=== PATIENT | female | born 1935 | race Caucasian/White ===

== ENCOUNTER 2016-11-18 04:18 | Emergency (ER) | payer MEDICARE ==
--- NOTE | 2016-11-18 04:51 | ED.PDOC ---
History of Present Illness - General Chief Complaint: ENT Problem Stated Complaint: earache Time Seen by Provider: 11/18/16 04:18 Source: patient, RN notes reviewed, Vital Signs reviewed Additional Information: Pt reports 2 to 3 days of worsening intermittent sharp/electric shock like pain in her left ear and surrounding region. She tried some Advil at home with no relief. She clark snot go to the doctor regularly. She lives at home with her elderly . She states she has supportive neighbors that live near them. She is not sure what could be causing the pain. - History of Present Illness Timing/Duration: gradual Severity: moderate EENT Location: ear (L) Prearrival Treatment: over the counter meds Improving Factors: nothing Worsening Factors: movement - of the ear Associated Symptoms: denies symptoms Allergies/Adverse Reactions: Allergies NO KNOWN ALLERGY Allergy (Verified 11/18/16 04:26) Home Medications: Ambulatory Orders Valacyclovir HCl [Valtrex] 1 gm PO TID #21 tab 11/18/16 carBAMazepine [TEGretol] 200 mg PO DAILY #30 tab 11/18/16 Review of Systems - Review of Systems Constitutional: States: no symptoms reported EENTM: States: see HPI, ear pain Respiratory: States: no symptoms reported Cardiology: States: no symptoms reported Gastrointestinal/Abdominal: States: no symptoms reported Genitourinary: States: no symptoms reported Musculoskeletal: States: no symptoms reported Skin: States: no symptoms reported Neurological: States: no symptoms reported Endocrine: States: no symptoms reported Hematologic/Lymphatic: States: no symptoms reported Past Medical History (General) - Patient Medical History Hx Hypertension: Yes - not under any treatment at this time. Hx MRSA: No - Vaccination History Hx Tetanus, Diphtheria Vaccination: No Hx Influenza Vaccination: No Hx Pneumococcal Vaccination: No Immunizations Up to Date: Yes - Social History Hx Tobacco Use: No Hx Chewing Tobacco Use: No Hx Alcohol Use: No Hx Substance Use: No Hx Substance Use Treatment: No Hx Depression: No Feels Threatened In Home Enviroment: No Feels Threatened In a Relationship: No Hx Physical Abuse: No Hx Emotional Abuse: No Hx Suspected Abuse: No - Activities of Daily Living Hospice Agency (if applicable):: None Family Medical History - Family History Mother Family History: No Known Physical Exam - Physical Exam General Appearance: Comfortable - as long as she is not having a paroxysm of pain, No apparent distress - in between Eye Exam: bilateral normal Ear Exam: right ear: TM normal - difficult to fully assess left TM due to pain. 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 Treated with Toradol 15 mg IV with some decrease in intensity of pain. - Results/Orders Results/Orders: Laboratory Results - last 24 hr 11/18/16 11/18/16 11/18/16 05:09 05:09 05:10 WBC 5.7 RBC 4.13 L Hgb 12.4 Hct 36.9 MCV 89.4 MCH 30.0 MCHC 33.5 RDW 13.5 Plt Count 182 MPV 9.9 Absolute Neuts (auto) 3.50 Absolute Lymphs (auto) 1.30 Absolute Monos (auto) 0.60 Absolute Eos (auto) 0.20 Absolute Basos (auto) 0.10 Neutrophils % 61.3 Lymphocytes % 22.3 Monocytes % 11.4 H Eosinophils % 4.1 Basophils % 0.9 ESR 4 Sodium 139 Potassium 4.0 Chloride 108 Carbon Dioxide 24 Anion Gap 11.0 L BUN 16 Creatinine 0.61 BUN/Creatinine Ratio 26.2 H Random Glucose 93 Serum Osmolality 278.4 Calcium 9.3 Total Bilirubin 0.6 AST 16 ALT 11 Alkaline Phosphatase 39 L Creatine Kinase 56 CK-MB (CK-2) 1.7 CK-MB (CK-2) % Not Reportable Troponin I 0.02 Serum Total Protein 6.6 Albumin 4.0 Globulin 2.6 Albumin/Globulin Ratio 1.5 11/18/16 11/18/16 11/18/16 04:18 05:05 05:15 Temperature 98.2 F 98.2 F Pulse Rate 76 57 L Pulse Rate [ 76 81 57 L telemetry] Respiratory 16 18 18 Rate Blood Pressure 191/101 186/89 187/86 [left upper arm ] O2 Sat by Pulse 98 97 97 Oximetry 11/18/16 11/18/16 05:57 06:00 Temperature 98 F Pulse Rate 61 Pulse Rate [ 61 60 telemetry] Respiratory 18 20 Rate Blood Pressure 183/78 202/78 [left upper arm ] O2 Sat by Pulse 98 96 Oximetry Departure - Departure Clinical Impression: Ear pain, left, Uncontrolled hypertension Time of Disposition: 06:38 Disposition: Discharge to Home or Self Care Condition: Fair Departure Forms: ED Discharge - Pt. Copy, Patient Portal Self Enrollment Instructions: High Blood Pressure Referrals: NIKOLE ROBERTS MD REF III [Referring] - 1-2 Days Prescriptions: carBAMazepine [TEGretol] 200 mg PO DAILY #30 tab Valacyclovir HCl [Valtrex] 1 gm PO TID #21 tab Home Medications: Ambulatory Orders Valacyclovir HCl [Valtrex] 1 gm PO TID #21 tab 11/18/16 carBAMazepine [TEGretol] 200 mg PO DAILY #30 tab 11/18/16 Additional Instructions: Establishing continuity of care with a Primary Care Provider will likely benefit your condition. 1.) Regarding your inner ear symptoms. 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 It is a rare form of neuropathic pain which usually responds to treatment with the medicine Tegretol. We start the dosing at 200 mg once a day (preferably at night) for four days, and then increase by 200 mg after that every four days - 200 mg am and 200 mg pm, then 4 days after that 200 mg am and 400 mg pm. If your symptoms do not improve over the next few weeks you will likely benefit from an MRI/MRA of the brain specifically looking at the structures and blood vessels around your left ear to see if there are any structural or vascular abnormalities contributing to your symptoms. For pain it is ok to take ibuprofen - 200 mg/Advil 1 to 2 tablets three or four times a day as needed to calm down inflammation. Since this might be early shingles, we will place you on a regimen of medicine for 7 days called Valtrex - 1000 mg three times a day. 2.) Regarding the high blood pressure. You likely need to start daily blood pressure medicine that will be prescribed by your primary care provider. You should continue to check your blood pressure two to four times a month to get a trend of your values and see how you respond to therapy.
[2016-11-18] MEDS ORDERED: KETOROLAC TROMETHAMINE INJ 30 MG/ML VIAL IV ONE (05:14)
[2016-11-18] MEDS ORDERED: KETOROLAC TROMETHAMINE INJ 30 MG/ML VIAL ONE (05:14)
[2016-11-18 06:00] VITALS: TEMP 98
[2016-11-18] MEDS ORDERED: carBAMazepine 200 MG TAB PO ONE (06:22)
[2016-11-18] MEDS ORDERED: carBAMazepine 200 MG TAB ONE (06:23)
[2016-11-18] MEDS ORDERED: valACYclovir 500 MG TAB PO ONE (06:24)
[2016-11-18] MEDS ORDERED: valACYclovir 500 MG TAB ONE (06:24)
[2016-11-18 06:48] VITALS: BP 190/90; O2SAT 98
== END 2016-11-18 06:45 | disposition home or self-care (01) ==
LOC: ER 04:18
DX: H92.02 Otalgia, left ear (principal); I10 Essential (primary) hypertension
CPT/HCPCS: 36415; 80053; 82550; 82553; 84484; 85025; 85651; J1885

== ENCOUNTER 2016-11-20 14:20 | Emergency (ER) | payer MEDICARE ==
--- NOTE | 2016-11-20 14:31 | ED.PDOC ---
History of Present Illness - General Chief Complaint: Trauma Stated Complaint: fall Time Seen by Provider: 11/20/16 14:30 Source: patient Exam Limitations: no limitations - History of Present Illness Initial Comments: Audra Jha 81 y/o female stated that she slipped and fell on a wooden floor at home landed on her bottom.Has dull pain on right hip radiating to her groin after incident and helped by got up. Denies neck /head/chest injuries. Occurred: just prior to arrival Severity: moderate Injuries/Pain Location: pelvis, other - right hip pain Reason for Fall: slipped Loss of Consciousness: no loss of consciousness Improving Factors: rest Worsening Factors: movement Associated Symptoms (Fall): denies symptoms Allergies/Adverse Reactions: Allergies NO KNOWN ALLERGY Allergy (Verified 11/20/16 14:31) Home Medications: Ambulatory Orders Valacyclovir HCl [Valtrex] 1 gm PO TID #21 tab 11/18/16 carBAMazepine [TEGretol] 200 mg PO DAILY #30 tab 11/18/16 Review of Systems - Review of Systems Constitutional: States: no symptoms reported EENTM: States: no symptoms reported Respiratory: States: no symptoms reported Cardiology: States: no symptoms reported Gastrointestinal/Abdominal: States: no symptoms reported Genitourinary: States: no symptoms reported Musculoskeletal: States: see HPI Skin: States: no symptoms reported Neurological: States: no symptoms reported Past Medical History (General) - Patient Medical History Hx Congestive Heart Failure: No Hx Hypertension: Yes - not under any treatment at this time. Hx Diabetes: No Hx MRSA: No Surgical History: other - left oophorectomy - Vaccination History Hx Tetanus, Diphtheria Vaccination: No Hx Influenza Vaccination: No Hx Pneumococcal Vaccination: No - Social History Hx Tobacco Use: No Hx Chewing Tobacco Use: No Hx Alcohol Use: No Hx Substance Use: No Hx Substance Use Treatment: No Hx Depression: No Hx Physical Abuse: No Hx Emotional Abuse: No Hx Suspected Abuse: No - Activities of Daily Living Patient Lives Alone: No - Grooming Ability: Independent Eating (Feeding) Ability: Independent Toileting Ability: Independent - Female History Patient is a Female of Child Bearing Age (10 -59 yrs old): No Physical Exam - Physical Exam General Appearance: Alert, Comfortable, No apparent distress Head Injury: no evidence of injury Eye Exam: bilateral normal ENT Exam: hearing grossly normal, no evidence of ENT injury, no dental injury Peripheral Pulses: radial,right: 1+, radial,left: 1+ Cardiovascular/Respiratory: regular rate, rhythm, no M/R/G, normal peripheral pulses, normal breath sounds Gastrointestinal/Abdominal: normal bowel sounds, non tender, soft Back Exam: normal inspection, no CVA tenderness, no vertebral tenderness Extremity Exam: pelvis stable, bony-point tenderness - right torchanter, pain with movement Neurologic: no motor/sensory deficits, alert, oriented x 3 Skin Exam: normal color, warm/dry - [place] Coma Score Best Eye Response ([place]): (4) open spontaneously Best Verbal Response ([place]): (5) oriented Best Motor Response ([place]): (6) obeys commands [place] Total: 15 Progress - Progress Progress: 11/20/16 15:20 Vital Signs - 8 hr 11/20/16 14:20 Temperature 99.2 F Pulse Rate [ 83 pulse ox] Respiratory 20 Rate Blood Pressure 188/89 [right arm] O2 Sat by Pulse 96 Oximetry Laboratory Tests 11/20/16 11/20/16 14:40 14:40 WBC 9.7 RBC 3.92 L Hgb 11.8 L Hct 35.2 L MCV 89.9 MCH 30.1 MCHC 33.5 RDW 13.5 Plt Count 178 MPV 9.5 Absolute Neuts (auto) 7.70 H Absolute Lymphs (auto) 0.90 L Absolute Monos (auto) 0.90 H Absolute Eos (auto) 0.10 Absolute Basos (auto) 0.00 Neutrophils % 79.4 H Lymphocytes % 9.2 L Monocytes % 9.6 H Eosinophils % 1.4 Basophils % 0.4 Sodium 142 Potassium 3.9 Chloride 109 Carbon Dioxide 24 Anion Gap 12.9 BUN 24 H D Creatinine 0.72 BUN/Creatinine Ratio 33.3 H Random Glucose 126 H D Serum Osmolality 288.7 Calcium 9.4 Departure - Departure Clinical Impression: Fall Qualifiers: Encounter type: initial encounter Qualified Code(s): W19.XXXA - Unspecified fall, initial encounter Contusion of pelvis Qualifiers: Encounter type: initial encounter Qualified Code(s): S30.0XXA - Contusion of lower back and pelvis, initial encounter Contusion of hip, right Qualifiers: Encounter type: initial encounter Qualified Code(s): S70.01XA - Contusion of right hip, initial encounter Time of Disposition: 15:23 Disposition: Discharge to Home or Self Care Departure Forms: ED Discharge - Pt. Copy, Patient Portal Self Enrollment Instructions: DI for Contusion Referrals: Sherif Brito MD [Primary Care Provider] - 1-2 Weeks Home Medications: Ambulatory Orders Valacyclovir HCl [Valtrex] 1 gm PO TID #21 tab 11/18/16 carBAMazepine [TEGretol] 200 mg PO DAILY #30 tab 11/18/16 Additional Instructions: FOLLOW UP WITH PRIMARY MD 11/27/2016 Call for appointment as needed;Ibuprofen ( otc) 3 tabs by mouth 3 x a day for pain
[2016-11-20 14:32] VITALS: BP 188/89; TEMP 99.2; O2SAT 96
--- NOTE | 2016-11-20 15:07 | RAD ---
EXAM DESCRIPTION: Hip Bilateral CLINICAL HISTORY: pain COMPARISON: 3 view lumbar spine dated 12 April 2007 TECHNIQUE: AP and lateral bilateral FINDINGS: Examination of the right hip reveals no bone joint or soft tissue abnormality. No pelvic fracturing is detected. Degenerative changes are observed in the left sacroiliac joint. Examination of the left hip reveals no bone joint or soft tissue abnormality. No fracturing is detected. IMPRESSION: Exam reveals some degenerative changes in the sacroiliac joints. The exam is otherwise unremarkable. Electronically signed by: Scott Gregorio MD 11/20/2016 3:06 PM CDT
--- NOTE | 2016-11-20 15:09 | RAD ---
EXAM DESCRIPTION: Pelvis,2 or More Views CLINICAL HISTORY: pain COMPARISON: None. TECHNIQUE: AP pelvis dated 20 November 2016. FINDINGS: Bilateral sacroiliac joint degenerative changes are observed. Mild degenerative changes are observed in the lower lumbar spine. No pelvic fracturing is seen. The proximal femurs are normal. IMPRESSION: Degenerative changes are observed in the sacroiliac joints. Exam is otherwise unremarkable. Electronically signed by: Scott Gregorio MD 11/20/2016 3:07 PM CDT
== END 2016-11-20 15:40 | disposition home or self-care (01) ==
LOC: ER 14:20
DX: S30.0XXA Contusion of lower back and pelvis, initial encounter (principal); S70.01XA Contusion of right hip, initial encounter; I10 Essential (primary) hypertension; W01.0XXA Fall on same level from slipping, tripping and stumbling without subsequent striking against object, initial encounter; Y92.009 Unspecified place in unspecified non-institutional (private) residence as the place of occurrence of the external cause

== ENCOUNTER 2016-11-23 12:08 | Emergency (ER) | payer MEDICARE ==
[2016-11-23 12:47] VITALS: O2SAT 95
[2016-11-23] MEDS ORDERED: cefTRIAXone SODIUM 1 GM VIAL IM ONE (13:01)
[2016-11-23] MEDS ORDERED: CIPROFLOXACIN 500 MG TAB PO ONE (13:01)
[2016-11-23] MEDS ORDERED: FLUCONAZOLE 100 MG TAB PO ONE (13:03)
--- NOTE | 2016-11-23 13:05 | ED.PDOC ---
History of Present Illness - General Chief Complaint: Problem Stated Complaint: Frequency and urgency of urination Time Seen by Provider: 11/23/16 12:20 Source: patient Exam Limitations: no limitations - History of Present Illness Initial Comments: the patient is an 81-year-old female presenting to the emergency room secondary to urinary frequency for the last 24 hours. She is having a feeling of incomplete voiding. No shortness of breath. No new back pain. She did trip and fall recently and has musculoskeletal aches from that. No fevers. No evidence of sepsis. Timing/Duration: 24 hours Severity: moderate Improving Factors: nothing Worsening Factors: nothing Associated Symptoms: denies symptoms Allergies/Adverse Reactions: Allergies NO KNOWN ALLERGY Allergy (Verified 11/20/16 14:31) Home Medications: Ambulatory Orders Ciprofloxacin [Cipro] 500 mg PO BID #10 tab 11/23/16 Fluconazole 100 mg PO DAILY #2 tab 11/23/16 Review of Systems - Review of Systems Constitutional: States: no symptoms reported EENTM: States: no symptoms reported Respiratory: States: no symptoms reported Cardiology: States: no symptoms reported Gastrointestinal/Abdominal: States: no symptoms reported Genitourinary: States: see HPI Musculoskeletal: States: see HPI Skin: States: see HPI Neurological: States: no symptoms reported Endocrine: States: no symptoms reported All other Systems: No Change from Baseline Past Medical History (General) - Patient Medical History Hx Stroke: No Hx Cardiac Disorders: No Hx Congestive Heart Failure: No Hx Hypertension: No Hx Diabetes: No Hx Cancer: No Hx Hepatitis C: No Hx MRSA: No Surgical History: no surgical history - Vaccination History Hx Tetanus, Diphtheria Vaccination: No Hx Influenza Vaccination: No Hx Pneumococcal Vaccination: No - Social History Hx Tobacco Use: No Hx Chewing Tobacco Use: No Hx Alcohol Use: No Hx Substance Use: No Hx Substance Use Treatment: No Hx Depression: No Feels Threatened In Home Enviroment: No Feels Threatened In a Relationship: No Hx Physical Abuse: No Hx Emotional Abuse: No Hx Suspected Abuse: No - Female History Patient is a Female of Child Bearing Age (10 -59 yrs old): No Patient : No Family Medical History - Family History Mother Family History: No Known Physical Exam - Physical Exam General Appearance: Alert, Comfortable, No apparent distress Eye Exam: bilateral normal Ears, Nose, Throat: hearing grossly normal, normal ENT inspection, normal pharynx Neck: full range of motion Respiratory: lungs clear, normal breath sounds, no respiratory distress, no accessory muscle use Cardiovascular/Chest: normal peripheral pulses, no edema Peripheral Pulses: radial,right: 2+, radial,left: 2+, dorsalis pedis,right: 2+, dorsalis pedis,left: 2+ Gastrointestinal/Abdominal: non tender, soft Back Exam: no CVA tenderness Extremity: normal capillary refill, other - the patient does have trace edema to bilateral lower extremities. She has difficulty with moving the right lower extremity secondary to her fall. 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 The patient has a significant amount of bacteria and budding yeast in her urine. She is given a dose of Rocephin, ciprofloxacin and Diflucan here today. She needs to increase her fluid intake. The patient will be written for ciprofloxacin for 5 days and Diflucan for 2 days. She does need to follow-up with her primary care doctor early next week for a repeat urinalysis. ER warnings were given for any worsening. - Results/Orders Results/Orders: Laboratory Tests 11/23/16 12:47 Urine Color Yellow Urine Appearance Cloudy Urine pH 5.5 Ur Specific [place] >= 1.030 Urine Protein 100 H Urine Glucose (UA) Negative Urine Ketones Negative Urine Blood Large H Urine Nitrite Positive H Urine Bilirubin Negative Urine Urobilinogen 0.2 Ur Leukocyte Esterase Moderate H Urine RBC 10-20 H Urine WBC Tntc H Ur Epithelial Cells 1-3 Urine Bacteria 2+ H Urine Yeast 2+ budding H - EKG/XRAY/CT CT Ordered: No CT Interpretation Call Back: No Departure - Departure Clinical Impression: Cystitis Disposition: Discharge to Home or Self Care Condition: Fair Departure Forms: ED Discharge - Pt. Copy, Patient Portal Self Enrollment Instructions: Urinary Tract Infection Diet: regular diet Activity: increase activity as tolerated Referrals: Sherif Brito MD [Primary Care Provider] - 1-2 Weeks Prescriptions: Ciprofloxacin [Cipro] 500 mg PO BID #10 tab Fluconazole 100 mg PO DAILY #2 tab Home Medications: Ambulatory Orders Ciprofloxacin [Cipro] 500 mg PO BID #10 tab 11/23/16 Fluconazole 100 mg PO DAILY #2 tab 11/23/16 Additional Instructions: the patient is an 81-year-old female presenting to the emergency room secondary to symptoms of cystitis. The patient has a significant amount of bacteria and budding yeast in her urine. She is given a dose of Rocephin, ciprofloxacin and Diflucan here today. She needs to increase her fluid intake. The patient will be written for ciprofloxacin for 5 days and Diflucan for 2 days. She does need to follow-up with her primary care doctor early next week for a repeat urinalysis. ER warnings were given for any worsening.
[2016-11-23] MEDS ORDERED: LIDOCAINE 1% 10 ML VIAL INJ ONE (13:13)
[2016-11-23 13:57] VITALS: BP 180/74; TEMP 98.8
== END 2016-11-23 13:55 | disposition home or self-care (01) ==
LOC: ER 12:08
DX: N30.90 Cystitis, unspecified without hematuria (principal)
CPT/HCPCS: 81001; 87086; 87088; 87186; J0696

== ENCOUNTER 2019-03-25 07:29 | Emergency (ER) | payer MEDICARE ==
[2019-03-25 07:40] VITALS: BP 180/80; TEMP 97.9; O2SAT 99
--- NOTE | 2019-03-25 07:48 | ED.PDOC ---
History of Present Illness - General Chief Complaint: ENT Problem Stated Complaint: left ear pain Time Seen by Provider: 03/25/19 07:45 Source: patient Exam Limitations: no limitations - History of Present Illness Initial Comments: 83 yo F with no sig PMH who presents for intermittent, mild, L ear pain onset yesterday. Denies associated sx. Otherwise in normal state of health. Was concerned for infection and therefore wanted to be evaluated to make sure she did not need antibx. Denies f/c, cough, congestion, ear discharge, vision changes, eye pain, eye discharge, VICENTE, neck pain, weakness, numbness, rash, hearing deficits. Allergies/Adverse Reactions: Allergies NO KNOWN ALLERGY Allergy (Verified 11/20/16 14:31) Home Medications: Ambulatory Orders NK 03/25/19 Review of Systems - Review of Systems Constitutional: Denies: chills, fever EENTM: States: ear pain. Denies: eye pain, blurred vision, tearing, double vision, ear discharge, nose pain, nose congestion, throat pain, throat swelling, mouth pain, mouth swelling Respiratory: Denies: cough, orthopnea, short of breath, stridor, wheezing Cardiology: Denies: chest pain, edema, palpitations, syncope Gastrointestinal/Abdominal: Denies: abdominal pain, nausea, vomiting Musculoskeletal: Denies: back pain, neck pain Neurological: Denies: headache, numbness, weakness Past Medical History (General) - Patient Medical History Hx Stroke: No Hx Cardiac Disorders: No Hx Congestive Heart Failure: No Hx Hypertension: No Hx Diabetes: No Hx Cancer: No Hx Hepatitis C: No Hx MRSA: No - Vaccination History Hx Tetanus, Diphtheria Vaccination: No Hx Influenza Vaccination: No Hx Pneumococcal Vaccination: No - Social History Hx Tobacco Use: No Hx Chewing Tobacco Use: No Hx Alcohol Use: No Hx Substance Use: No Hx Substance Use Treatment: No Hx Depression: No Hx Physical Abuse: No Hx Emotional Abuse: No Hx Suspected Abuse: No - Female History Patient : No Family Medical History - Family History Mother Family History: No Known Physical Exam - Physical Exam General Appearance: Alert, Comfortable, No apparent distress, Well Developed, Well Groomed, Well Nourished Eye Exam: bilateral normal Ear Exam: bilateral ear: auricle normal, canal normal, TM normal Nasal Exam: normal inspection Throat Exam: normal mouth inspection Neck: non-tender, full range of motion, supple Cardiovascular/Respiratory: regular rate, rhythm, no M/R/G, normal peripheral pulses, no JVD, normal breath sounds, no respiratory distress Abdominal Exam: non-tender Neurologic: no motor/sensory deficits, alert, normal mood/affect, oriented x 3 Skin Exam: normal color, warm/dry Progress - Progress Progress: 03/25/19 07:48 I have explained and reviewed all results with the pt. I explained that emergent conditions may arise and to return to the ER for new, worsening, or any persistent conditions. I've explained the importance of f/u for recheck. All questions and concerns addressed at this time. Pt understands and agrees with plan. Pt well appearing, NAD, is stable for discharge. Coco Davis MD Emergency Medicine Physician Billing Number [id number] Departure - Departure Clinical Impression: Left ear pain Time of Disposition: 07:46 Disposition: Discharge to Home or Self Care Health Concerns: Condition: stable Departure Forms: ED Discharge - Pt. Copy, Patient Portal Self Enrollment Home Medications: Ambulatory Orders NK 03/25/19 Additional Instructions: Follow up: [facility] As needed, if symptoms worsen Your Primary Care Physician Make appointment, two days, for follow up
== END 2019-03-25 07:53 | disposition home or self-care (01) ==
LOC: ER 07:29
DX: H92.02 Otalgia, left ear (principal)

== ENCOUNTER 2019-09-27 08:20 | Observation (INO) | payer MEDICARE ==
[2019-09-27] MEDS ORDERED: SODIUM CHLORIDE 0.9% (FLUSH) 10 ML SYG IV PRN ×2 (08:37→11:05)
--- NOTE | 2019-09-27 09:51 | ED.PDOC ---
History of Present Illness - General Chief Complaint: Respiratory Problem Stated Complaint: SOB, non prod cough x 3 days Time Seen by Provider: 09/27/19 08:37 Source: patient, RN notes reviewed, Vital Signs reviewed, family - Daughter Exam Limitations: no limitations - History of Present Illness Initial Comments: Patient is an 83-year-old white female who presents with complaints of palpitations with chest pressure x3 days. The chest pressure is nonradiating. It is not associated with exertion. Patient is short of breath. It is moderate in intensity. Nothing seems to make it better or worsen. This is new to her as she has no medical problems at all and takes no daily both foods. Timing/Duration: constant, getting worse Severity: moderate Improving Factors: nothing Worsening Factors: nothing Associated Symptoms: cough, shortness of breath Allergies/Adverse Reactions: Allergies NO KNOWN ALLERGY Allergy (Verified 09/27/19 08:43) Home Medications: Ambulatory Orders NK 03/25/19 Review of Systems - Review of Systems Constitutional: States: no symptoms reported, see HPI EENTM: States: no symptoms reported. Denies: blurred vision, double vision, throat pain, throat swelling Respiratory: States: see HPI, cough, short of breath. Denies: stridor, wheezing Cardiology: States: see HPI, chest pain, edema - Mild lower extremity edema., palpitations. Denies: syncope Gastrointestinal/Abdominal: States: no symptoms reported. Denies: abdominal pain, diarrhea, nausea, vomiting Genitourinary: States: no symptoms reported Musculoskeletal: States: no symptoms reported. Denies: back pain, joint pain, joint swelling, neck pain Skin: States: no symptoms reported. Denies: change in color, rash Neurological: States: no symptoms reported. Denies: headache, numbness, paresthesia Endocrine: States: no symptoms reported Hematologic/Lymphatic: States: no symptoms reported. Denies: anemia, easy bleeding, easy bruising Past Medical History (General) - Patient Medical History Hx Stroke: No Hx of COPD: No Hx Cardiac Disorders: No Hx Congestive Heart Failure: No Hx Hypertension: No Hx Diabetes: No Hx Cancer: No Hx Hepatitis C: No Hx MRSA: No Surgical History: no surgical history - Vaccination History Hx Tetanus, Diphtheria Vaccination: No Hx Influenza Vaccination: No Hx Pneumococcal Vaccination: No - Social History Hx Tobacco Use: No Hx Chewing Tobacco Use: No Hx Alcohol Use: No Hx Substance Use: No Hx Substance Use Treatment: No Hx Depression: No Hx Physical Abuse: No Hx Emotional Abuse: No Hx Suspected Abuse: No - Female History Patient is a Female of Child Bearing Age (10 -59 yrs old): No Patient : No Family Medical History - Family History Mother Family History: No Known Living Status: Physical Exam - Physical Exam General Appearance: Alert, Comfortable, Well Developed, Well Groomed, Well Hydrated, Well Nourished Eye Exam: bilateral conjunctivae pale Ears, Nose, Throat: hearing grossly normal, normal ENT inspection, normal pharynx Neck: non-tender, full range of motion, supple, normal inspection Respiratory: chest non-tender, lungs clear, normal breath sounds, no respiratory distress, no accessory muscle use Cardiovascular/Chest: normal peripheral pulses, no murmur, tachycardia, irregularly irregular Peripheral Pulses: radial,right: 2+, radial,left: 2+ Gastrointestinal/Abdominal: normal bowel sounds, non tender, soft, no organomegaly, no pulsatile mass Back Exam: normal inspection, no CVA tenderness, no vertebral tenderness Extremity: normal range of motion, non-tender, pedal edema - 1+ pitting edema to the mid shins bilaterally equal. Neurologic: marketing technology coordinator II-XII nml as tested, no motor/sensory deficits, alert, normal mood/affect, oriented x 3 Skin Exam: warm/dry, pallor Lymphatic: no adenopathy Progress - Progress Progress: Differential diagnosis: Acute MT, new onset A. fib, CHF, pneumonia among others. 09/27/19 0939 hrs Discussed with patient the need for admission. She understands that she has new onset atrial fibrillation with rapid ventricular response. I also explained that her hemoglobin was quite low and we will check her stool for blood. Patient states that she has had no bleeding from her stool and her stool is brown. I discussed this patient with Adam Gurrola NP and he is excepted her for admission. Gato Browning M.D. #[id number] - Results/Orders Results/Orders: 09/27/19 08:37 Sodium Chloride 0.9% (Flush) [Saline Flush Syringe] 3 ml IV PRN PRN URINALYSIS Stat 09/27/19 08:38 Chest,1 View [RAD] Stat 09/27/19 08:45 EKG STAT 09/27/19 09:00 Pulse Ox Daily Laboratory Results - last 24 hr 09/27/19 09/27/19 08:55 08:55 WBC 9.8 RBC 3.68 L Hgb 7.2 L* Hct 24.2 L MCV 65.7 L MCH 19.6 L MCHC 29.9 L RDW 19.1 H Plt Count 308 MPV 8.8 Absolute Neuts (auto) 8.10 H Absolute Lymphs (auto) 0.60 L Absolute Monos (auto) 0.90 H Absolute Eos (auto) 0.10 Absolute Basos (auto) 0.10 Neutrophils % 82.7 H Lymphocytes % 6.5 L Monocytes % 9.4 H Eosinophils % 0.7 L Basophils % 0.7 PT 11.2 H INR 1.13 PTT (SP) 23.2 Sodium 143 Potassium 3.5 L Chloride 113 H Carbon Dioxide 21 Anion Gap 12.5 BUN 22 H Creatinine 0.78 BUN/Creatinine Ratio 28.2 H Random Glucose 140 H Serum Osmolality 290.6 Calcium 8.8 Magnesium 1.9 Total Bilirubin 0.8 Direct Bilirubin 0.2 Indirect Bilirubin 0.6 AST 18 ALT 13 Alkaline Phosphatase 38 L Creatine Kinase 100 CK-MB (CK-2) 3.8 CK-MB (CK-2) % Not Reportable Troponin I 0.03 B-Natriuretic Peptide 586.0 H* Serum Total Protein 7.0 Albumin 4.0 Vital Signs 09/27/19 09/27/19 09/27/19 08:20 08:34 08:45 Temperature 98.2 F Pulse Rate [ 111 H 111 H Pulse ox] Respiratory 28 H 28 H Rate Blood Pressure 167/119 [L brachial] O2 Sat by Pulse 91 L 95 Oximetry 09/27/19 09:00 Temperature Pulse Rate [ 92 H Pulse ox] Respiratory 26 H Rate Blood Pressure 139/84 [L brachial] O2 Sat by Pulse 98 Oximetry EKG performed 27 September 2019 at 0827 hrs.: Atrial fibrillation with rapid ventricular response with aberrantly conducted complexes, nonspecific ST and T wave abnormalities, abnormal EKG. No comparison EKG available for review. EXAM DESCRIPTION: XR Chest, one view CLINICAL HISTORY: sob. COMPARISON: None FINDINGS: The heart is normal in size. The pulmonary vascularity is congested and prominence of the right hilum is noted probably from pulmonary vascular congestion.. Mild perihilar interstitial infiltrates are noted. No pneumothorax or pleural effusion is seen. The osseous structures appear unremarkable. IMPRESSION: Perihilar vascular congestion. Right hilar prominence. Two view chest x-ray examination when patient's condition permits is recommended. Electronically signed by: Pinky Abad MD 09/27/2019 10:09 AM CDT Departure - Departure Clinical Impression: Atrial fibrillation with RVR, Symptomatic anemia, New onset a-fib Dyspnea Qualifiers: Dyspnea type: shortness of breath Qualified Code(s): R06.02 - Shortness of breath Time of Disposition: 09:39 Disposition: Admit Patient Condition: Good Departure Forms: ED Discharge - Pt. Copy, Patient Portal Self Enrollment Home Medications: Ambulatory Orders NK 03/25/19 Critical Care Note - Critical Care Note Total Time (mins): 45 Decision To Admit - Decistion To Admit Decision to Admit Date: 09/27/19 Decision to Admit Time: 09:39
--- NOTE | 2019-09-27 10:11 | RAD ---
EXAM DESCRIPTION: XR Chest, one view CLINICAL HISTORY: sob. COMPARISON: None FINDINGS: The heart is normal in size. The pulmonary vascularity is congested and prominence of the right hilum is noted probably from pulmonary vascular congestion.. Mild perihilar interstitial infiltrates are noted. No pneumothorax or pleural effusion is seen. The osseous structures appear unremarkable. IMPRESSION: Perihilar vascular congestion. Right hilar prominence. Two view chest x-ray examination when patient's condition permits is recommended. Electronically signed by: Pinky Abad MD 09/27/2019 10:09 AM CDT
--- NOTE | 2019-09-27 10:25 | HP ---
CHIEF COMPLAINT: Shortness of breath with heart palpitations and chest pain. HISTORY OF PRESENT ILLNESS: Ms. Jha is an 83 year-old female patient who presented to the Emergency Department today complaining of palpitations with some chest pressure that had been going on for a little over 3 days but she endorses she has been having some issues for a couple of weeks but it got worse in the last 3 days. She endorses the chest pressure is nonradiating but she is short of breath. She has no medical history. She is not on any medications as she does not have a primary care physician and has not seen one in years. Vital signs initially in the Emergency Room showed she had a heart rate of 111. 12-lead EKG showed atrial fibrillation with rapid ventricular response. No ST or T-wave changes were noted. There was no comparison at time of admission. She was given 2 doses of Cardizem, 15 mg each which did slow her down into the 90s. Hemodynamically she was stable with a blood pressure initially of 167/119, after she slowed to the 90s it was showing to be 149/84. Laboratory work did show she was anemic with a hemoglobin of 7.2 and hematocrit 24.2 with her indices indicating a microcytic hypochromic anemia. The patient denied any occult loss, any changes in bowel habits, no bright red blood per rectum. Coagulation studies were within normal limits. Chemistries showed a mildly low potassium at 3.5, BUN 22, creatinine 0.78, liver functions were within normal limits. She did have an elevated BNP at 586. Initial troponin was 0.03. Given the fact that this was a new onset of atrial fibrillation, the patient was having some mild chest pain, the Emergency Room physician requested the patient be admitted for further workup and further evaluation and treatment of underlying atrial fibrillation rapid ventricular response. The patient was placed in observation in stable condition. PAST MEDICAL HISTORY: None listed. PAST SURGICAL HISTORY: None listed. CURRENT MEDICATIONS: None listed. ALLERGIES: No known drug allergies. FAMILY HISTORY: Father at 94 from old age. Mother at 77 from old age, no reported chronic history. She had 2 sisters, both , they were healthy. She has 2 children, they are in [facility] and [place], they are both healthy. SOCIAL HISTORY: The patient is for the last 2 years. She lives by herself. Again, she has a son and a daughter, both live out of town with the son in [place] and daughter in [place]. She has never smoked, has never drank alcohol and does not use any illicit drugs. She is retired, worked previously as a general outside sales representative for businesses. REVIEW OF SYSTEMS: CONSTITUTIONAL: Denies fevers, chills, general malaise, body aches or unintentional weight loss. HEENT: Denies headaches, ear aches, sore throat, nasal congestion, vision changes. CHEST: As noted in history of present illness She does have some shortness of breath which is more exertional and orthopneic but denies stridors, wheezing or coughing. HEART: Does have some reported chest pain that is pressure and peripheral edema of lower extremities bilaterally. Has had some palpitations, denies syncope or presyncopal episodes. ABDOMEN: Denies nausea, vomiting, diarrhea, constipation or abdominal pains. GENITOURINARY;: Denies dysuria, hematuria, polyuria. MUSCULOSKELETAL: Denies joint with, joint pain, back pain. SKIN: No lesions, rashes, unexplained changes. NEUROLOGICAL;: Denies headaches, numbness, seizures, ataxia or paresthesias or other neurological deficits. HEMATOLOGIC: Denies easy bruising, unexplained bleeding or transfusion reactions. PHYSICAL EXAMINATION: VITAL SIGNS: Initially in the Emergency Room, heart rate was 110s to 120s showing atrial fibrillation on the monitor. Blood pressure initially was elevated at 167/119, short of breath at 28 respirations with 90 to 91% on room air. After Cardizem and oxygen and prior to admission, she was showing to be in the mid 90s heart rate, slightly irregular, blood pressure 149/84, continued to have some mild shortness of breath at 22 but oxygen saturation 94% on 2 liter nasal cannula. GENERAL: The patient is resting comfortably, does not appear to be in any acute distress. She looks well-hydrated and well-nourished. HEENT: Tympanic membranes clear bilaterally. Oropharynx pink, moist without any lesions. Conjunctiva pale bilaterally. NECK: Supple, non-tender, full range of motion. No jugular venous distention. CHEST: Lung sounds clear throughout, just diminished towards the bases, no rhonchi, rales, or wheezes. CARDIOVASCULAR: Slightly irregular rate and rhythm showing to be in the 90s on the monitor. No murmurs, rubs, or gallops noted. ABDOMEN: Soft, non-tender, positive bowel sounds. No rebound tenderness. No point tenderness. BACK: No CVA or vertebral tenderness. EXTREMITIES: Without cyanosis, clubbing, there was noted 1+ pitting edema up to the mid shins bilaterally of the lower extremities. NEUROLOGIC: Cranial nerves II through XII grossly intact. She was alert and oriented x3. Facial features were symmetrical. Extraocular movements within normal limits. No notable nystagmus. SKIN: Warm and dry but pale. LABORATORY: CBC showed a white count of 9,800 with a slight left shift. Hemoglobin 7.2, hematocrit 24.2. RBC indices indicated a microcytic hypochromic anemia. Coagulation studies showed PT of 11.2, PTT of 23.2. Chemistries: potassium 3.5, all other electrolytes were fairly normal with a BUN of 22, creatinine 0.78, liver functions all within normal limits. Magnesium 1.9, calcium 8.8, troponin initially was 0.03, BNP elevated at 586, TSH iron panel was pending. Urinalysis was within normal limits. RADIOLOGY: Chest x-ray per radiology interpretation showed perivascular congestion and right hilar prominence. ASSESSMENT: 1. New onset of atrial fibrillation with a rapid ventricular response not on any previous medications for rate control. 2. Hypertension not on any chronic medication. 3. Chest pain, chest pressure associate with #1 requiring further workup and rule out of acute coronary syndrome. 4. Mild electrolyte imbalance with a hypokalemia. 5. Microcytic hypochromic anemia likely iron-deficiency anemia with no mention of acute loss. 6. Acute congestive heart failure,likely exacerbated by the atrial fibrillation with a noted BNP elevated on admission, not on any Lasix or angelique inhibitors, beta blockers. PLAN: The patient is going to placed in observation fo further treatment of her atrial fibrillation rapid ventricular response and further evaluation of her anemia. Given that she is not on any medication and she come in atrial fibrillation, we gave her Cardizem. Will go ahead and put her on a Cardizem drip at least for the first 12 to 24 hours so we can further assess dosing of Cardizem p.o. before transitioning her to medication. I did give her an aspirin. She will be on Lovenox per protocol. We will go ahead and do serial cardiac enzymes as well as EKGs to rule out any coronary syndrome. She does have an elevated BNP but no echocardiogram available for review so she will need a workup as far as questionable congestive heart failure with an echocardiogram. I have also ordered iron studies, TSH, suspect she will need to be treated for iron-deficiency anemia. At this point, we will hold off on a transfusion, recheck her H&H tonight. Given that she does have some peripheral edema and some concerning symptoms for congestive heart failure, I went ahead and started on some low-dose Lasix and she does look vascularly dry on paper so we will start her on some low IV fluids. I do not see any overt signs of infection at this point. Will hold off on any antibiotics but closely monitor. She will be on telemetry. She is, given her age, a high risk Covid patient but given that she has no fever and she reports she lives alone, does not get out and her family lives out of town, I will hold off on any Covid testing at this point. Again, she will need further workup in regard to chronic illnesses but at this point we need to get her stabilized on her atrial fibrillation and see if she needs to be transfused and work to get her set up with a primary care physician so she can be seen by Cardiology and Hematology. I anticipate she probably will be able to go home tomorrow. Until we can transition her to outpatient management, we will continue to monitor and treat as needed. #[id number] EVE
[2019-09-27] MEDS ORDERED: ACETAMINOPHEN 325 MG TAB PO PRN (11:05)
[2019-09-27] MEDS ORDERED: MAGNESIUM HYDROXIDE 30 ML UD PO PRN (11:05)
[2019-09-27] MEDS ORDERED: ALUM & MAG HYDROX-SIMETHICONE 30 ML UD PO PRN (11:05)
[2019-09-27] MEDS ORDERED: ASPIRIN TABLET 325 MG TAB PO ONE (11:14)
[2019-09-27] MEDS ORDERED: SODIUM CHLORIDE 0.9% 100ML 100 ML IVPB ONE (11:29)
[2019-09-27] MEDS ORDERED: diltiaZEM DRIP 125 MG/25 ML VIAL IVPB ONE (11:29)
[2019-09-27] MEDS ORDERED: ASPIRIN TABLET 325 MG TAB ONE (11:30)
[2019-09-27] MEDS ORDERED: IV SET AND CAP CHANGE INJ INJ SCH (11:30)
[2019-09-27] MEDS: diltiaZEM DRIP 125 MG in SODIUM CHLORIDE 0.9% 100ML 100 ML IVPB SCH ×2 (11:59→22:16)
[2019-09-27] MEDS ORDERED: FUROSEMIDE INJ 20 MG/2 ML VIAL IV ONE (12:10)
[2019-09-27] MEDS ORDERED: KCL 20MEQ/D5 1/2NS 1,000 ML IVS PRN (12:11)
[2019-09-27] MEDS: NITROGLYCERIN 0.2 MG/HR PATCH TD SCH (12:49)
[2019-09-27] MEDS: LEVALBUTEROL NEBS 1.25 MG/3 ML VIAL NEB PRN (13:03)
[2019-09-27] MEDS: LEVALBUTEROL NEBS 1.25 MG/3 ML VIAL NEB SCH ×2 (14:50→19:50)
[2019-09-27] MEDS ORDERED: LISINOPRIL 5 MG TAB PO ONE (19:36)
[2019-09-27] MEDS ORDERED: ACETAMINOPHEN 325 MG TAB PO ONE (23:23)
[2019-09-27] MEDS ORDERED: diphenhydrAMINE HCL 50 MG/ML VIAL IV ONE (23:23)
[2019-09-27] MEDS ORDERED: FUROSEMIDE INJ 40 MG/4 ML VIAL IV ONE (23:23)
[2019-09-27] MEDS ORDERED: SODIUM CHLORIDE 0.9% 500ML 500 ML IVS SCH (23:30)
[2019-09-28] MEDS: FUROSEMIDE INJ 20 MG/2 ML VIAL IV PRN ×2 (05:07→08:21)
[2019-09-28] MEDS: ASPIRIN (CHEWABLE) 81 MG TAB PO SCH (08:21)
[2019-09-28] MEDS: LISINOPRIL 5 MG TAB PO SCH (08:21)
[2019-09-28] MEDS: NITROGLYCERIN 0.2 MG/HR PATCH TD SCH (08:22)
[2019-09-28] MEDS: LEVALBUTEROL NEBS 1.25 MG/3 ML VIAL NEB SCH ×3 (08:23→20:04)
[2019-09-28] MEDS ORDERED: FUROSEMIDE INJ 20 MG/2 ML VIAL IV ONE (09:55)
[2019-09-28] MEDS: diltiaZEM HCL TAB 30 MG TAB PO SCH ×3 (10:04→21:48)
[2019-09-28] MEDS ORDERED: POTASSIUM CHLORIDE 20 MEQ TAB PO ONE (12:21)
--- NOTE | 2019-09-28 13:39 | PN ---
SUPERVISING PHYSICIAN: Ramez Burk MD DATE: 09/28/19 SUBJECTIVE: The patient is lying in bed. She is somewhat confused. She did ask to have her kearns out. She has no complaints of shortness of breath, nausea or vomiting or chest pain. Her daughter is at the bedside. We discussed her plan of care and getting a primary care physician which will be Dr. Juan. We also discussed transitioning her IV Cardizem to oral Cardizem and that she would need to be in the hospital another day to regulate her medications. We also discussed that she would have [facility] which the patient agreed to. OBJECTIVE: VITAL SIGNS: Temperature 97.4, heart rate 94, blood pressure 143/59, respiratory rate 24, oxygen saturation4 94% on 2 liters nasal cannula. RESPIRATORY: Essentially clear to auscultation bilaterally. CARDIAC: Regular rate and rhythm, atrial fibrillation on the registered nurse cardiac telemetry, although occasionally there is a sinus beat. GI: Abdomen soft, nondistended, non-tender. Bowel sounds are positive. NEUROLOGICAL: She is awake and alert. She is confused. She is oriented to person and place. LABORATORY: Sodium 141, potassium 3.4, chloride 111, BUN 22, creatinine 0.85, WBC 10.3 with a hemoglobin of 8.6 and hematocrit of 27.5. All other labs and films have been reviewed via the EMR. ASSESSMENT: 1. New onset of atrial fibrillation with a rapid ventricular response not on any previous medications for rate control. 2. Hypertension not on any chronic medication. 3. Chest pain, chest pressure associate with #1 requiring further workup and rule out of acute coronary syndrome. 4. Mild electrolyte imbalance with a hypokalemia. 5. Microcytic hypochromic anemia likely iron-deficiency anemia with no mention of acute loss. 6. Acute congestive heart failure,likely exacerbated by the atrial fibrillation with a noted BNP elevated on admission, not on any Lasix or angelique inhibitors, beta blockers. 7. Severe dementia. PLAN: We will continue present supportive care. I have transitioned her off of her IV Cardizem and she is now on 30 mg of Cardizem every 6 hours. Will do bladder training and discontinue her catheter. I have also started her on oral Lasix and will give her a dose of potassium supplementation today. Dr. Juan will see her as an outpatient and she will need Cardiology as well as Hematology and an echocardiogram after discharge. She has an appointment with Dr. Juan Saturday morning at 10:15 AM as her daughter will still be in town at that time. She will also have [facility]. She will stay overnight and I am not sure she will be safe to go home. She is very demented and confused. There are no family residing in the area to check on her. She actually still has keys to an auto, but the daughter is very worried she does not have the mental capacity to drive or cook for herself. She frequently asks the same questions over and over and does not understand why she has to take pills. I will order physical therapy to evaluate. I will also consult psych social worker, as she is not safe to be alone and could not care for herself. Her son is coming from [place] tomorrow, and we will discuss discharge plan and her need for almost constant supervision. I have ordered lab for in the morning and we with known to to monitor closely and follow as needed. #[id number] MTDD
[2019-09-28] MEDS ORDERED: REMOVE OLD PATCH TOP SCH (21:00)
[2019-09-29] MEDS: diltiaZEM HCL TAB 30 MG TAB PO SCH ×2 (03:46→10:08)
[2019-09-29] MEDS: LEVALBUTEROL NEBS 1.25 MG/3 ML VIAL NEB PRN (05:30)
[2019-09-29] MEDS ORDERED: FUROSEMIDE 40 MG TAB ONE (07:18)
[2019-09-29] MEDS: NITROGLYCERIN 0.2 MG/HR PATCH TD SCH (08:07)
[2019-09-29] MEDS: ASPIRIN (CHEWABLE) 81 MG TAB PO SCH (08:07)
[2019-09-29] MEDS: LISINOPRIL 5 MG TAB PO SCH (08:07)
[2019-09-29] MEDS: LEVALBUTEROL NEBS 1.25 MG/3 ML VIAL NEB SCH ×2 (08:11→13:46)
--- NOTE | 2019-09-29 08:46 | RAD ---
EXAM DESCRIPTION: Chest,2 Views CLINICAL HISTORY: 83 years Female, fluid COMPARISON: 27 September 2019 TECHNIQUE: PA/lateral FINDINGS: Cardiomegaly and interstitial edema are observed. I feel that probably is a background of chronic interstitial lung disease. There is been an interval improvement in aeration the chest since previous exam. Small bilateral pleural effusions are observed. IMPRESSION: Findings of congestive heart failure observed. There is been an interval improvement in aeration the chest. Electronically signed by: Scott Gregorio MD 09/29/2019 8:44 AM CDT
[2019-09-29] MEDS ORDERED: FUROSEMIDE 40 MG TAB PO SCH (09:00)
[2019-09-29] MEDS ORDERED: POTASSIUM CHLORIDE 20 MEQ TAB PO ONE ×2 (10:17→10:21)
[2019-09-29 12:33] VITALS: BP 140/71; TEMP 97.6
[2019-09-29] MEDS ORDERED: ENOXAPARIN SODIUM 40 MG/0.4 ML SYG SUBCU SCH (13:00)
[2019-09-29 17:43] VITALS: O2SAT 96
[2019-09-29] MEDS ORDERED: SODIUM CHLORIDE 0.9% (FLUSH) 10 ML SYG IV SCH (21:00)
--- NOTE | 2019-09-30 15:42 | DS ---
SUPERVISING PHYSICIAN: Aparna Burk MD DISCHARGE DIAGNOSIS: 1. New onset of atrial fibrillation with a rapid ventricular response not on any previous medications for rate control. 2. Hypertension not on any chronic medication. 3. Chest pain, chest pressure associate with #1 requiring further workup and rule out of acute coronary syndrome. 4. Mild electrolyte imbalance with a hypokalemia. 5. Microcytic hypochromic anemia likely iron-deficiency anemia with no mention of acute loss. 6. Acute congestive heart failure,likely exacerbated by the atrial fibrillation with a noted BNP elevated on admission, not on any Lasix or angelique inhibitors, beta blockers. 7. Severe dementia. HISTORY OF PRESENT ILLNESS: This is an 84-year-old female patient who lives alone and presented to the Emergency Department complaining of palpitations with some chest pressure that had been going on for 3 days. She actually said it had been going on for several weeks, but it worsened in the last 3 days to the point that she had to come to the Emergency Room. She was short of breath. She has no medical history and has not ever had a primary care physician. Vital signs in the ER showed a rate of 111. Her 12-lead EKG showed atrial fibrillation. She occasionally had rapid ventricular response. No ST or T-wave changes were noted. There was no EKG for comparison. She was given Cardizem in the ER x2 an d slowed her down into the 90s. Blood pressure initially of 167/119 and then came down to 149/84. Laboratory studies showed she was anemic with a hemoglobin of 7.2 and hematocrit 24.2. The patient denied any loss, any changes in bowel habits, no bright red blood per rectum. Coagulation studies were within normal limits. Chemistries showed a mildly low potassium at 3.5, BUN 22, creatinine 0.78, liver functions were within normal limits. She did have an elevated BNP at 586. She has no history of any heart problems. Initial troponin was 0.03. The patient was admitted for further workup and placed in observation. HOSPITAL COURSE: She was continued on a Cardizem drip as well as given an aspirin. She had iron studies ordered. Since there were some concerns for congestive heart failure, she was given some low dose Lasix as well as some judicious IV fluids. There were no overt signs of infection and no antibiotics were ordered. She initially was not tested for COVID-19 because she lives alone and had not been out. Initially, she was set up with Dr. Juan for outpatient treatment. Her daughter came from [place] and felt that she should not be home alone as she does have some advanced dementia. She was also unable to get her echocardiogram, so we will do that as an outpatient. She was transitioned from IV Cardizem to p.o. Cardizem and her vital signs remained stable. Her Wetzel catheter was discontinued. She did receive 2 units of packed red blood cells. [facility] has accepted her for physical therapy and monitoring of her medications. She will be discharged to that facility today. They have requested that COVID testing be done prior to her discharge. LABORATORY: Initial WBCs were 9.8 and today are 12.8. Hemoglobin was 7.2, dropped to 6.5 and after transfusion was 9.2. Her sodium has been stable at 141. Potassium has been slightly low at 3.5 to 3.4. She did receive supplementation today. Her chloride is 110. BUN 22, creatinine 0.75. Iron 16, TIBC 415.8, iron saturation 3.8, ferritin 4.4, bilirubin initially was 0.8 and went up to 1.3. BNP 586. Cardiac enzymes were negative as well as repeat troponin was also negative. TSH 1.77, free T4 index was 0.23. T4 9.75, T3 uptake 43.1. Urinalysis was unremarkable. Her COVID-19 results are pending. RADIOLOGY: Her followup chest x-ray showed findings of congestive heart failure observed. There has been an interval improvement in aeration of the chest. DISCHARGE PLAN: The patient will be discharged to [facility] for further monitoring of her new medications as well as for physical therapy. She is to have a regular diet and increase her activity as tolerated and as per physical therapy recommendations. She is to see Dr. Juan within 2 weeks. She is presently on no medications, so I have sent prescriptions for a baby aspirin daily as well as Cardizem 120 mg daily. She is also to have an echocardiogram 10/05/19, at 10 am at [facility]. It is also recommended she see a driver helper at some point. She also may need to see a GI physician. She is to call Dr. Juan's office or return to the hospital for any problems or complications. DISCHARGE MEDICATIONS: 1. Baby aspirin. 2. Diltiazem. #[id number] [facility]
== END 2019-09-29 15:45 ==
LOC: ER 08:20 → MS 10:23
PROVIDERS: ADMIT Nurse Practitioner Family; ATTEND Nurse Practitioner Acute Care
DX: I48.91 Unspecified atrial fibrillation (principal); I11.0 Hypertensive heart disease with heart failure; R07.89 Other chest pain; E87.6 Hypokalemia; E87.8 Other disorders of electrolyte and fluid balance, not elsewhere classified; D50.9 Iron deficiency anemia, unspecified; I50.9 Heart failure, unspecified; F03.90 Unspecified dementia, unspecified severity, without behavioral disturbance, psychotic disturbance, mood disturbance, and anxiety; R06.02 Shortness of breath; Z11.59 Encounter for screening for other viral diseases; Z79.82 Long term (current) use of aspirin; Z79.899 Other long term (current) drug therapy; Z60.2 Problems related to living alone
CPT/HCPCS: 96366 ×2; 96365; 96375 ×2; 96376 ×2; J1200; J1940 ×4; J7040; A4216; J7614 ×9; J7050 ×2; 80048 ×2; 80053; 85014; 85018; 36415 ×5; 82550; 82553; 85025 ×3; 85730; 85610; 84484 ×2; 81001 ×2; 80076; 82728; 83735 ×2; 84479; 84443; 84436; 83880; 83540; 83550; 71045; 71046; P9016 ×2; 86922; 86900; 86901; 86850; 36430; 94640 ×9; 94760 ×2; 94762 ×2; 97162; 99285; 93005; G0378; U0002

== ENCOUNTER 2020-03-11 16:28 | Emergency (ER) | payer MEDICARE ==
--- NOTE | 2020-03-11 16:39 | ED.PDOC ---
History of Present Illness - General Time Seen by Provider: 03/11/20 16:29 Source: patient, RN notes reviewed, Vital Signs reviewed, EMS notes reviewed, senior care records - History of Present Illness Initial Comments: 84 yo F was eating fried fish today and it didn't sit well and had one episode of emesis. currently no nausea, abdominal pain. tolerating PO. no diarrhea, shortness of breath or cough. no sore throat. was sent here by ambulance for a non emergent covid test. Allergies/Adverse Reactions: Allergies NO KNOWN ALLERGY Allergy (Verified 03/11/20 16:56) Home Medications: Ambulatory Orders Aspirin [Baby Aspirin] 81 mg PO DAILY #30 chwtab 09/29/19 diltiaZEM HCL CD [Cardizem Cd] 120 mg PO DAILY #30 cap 09/29/19 Review of Systems - Review of Systems Constitutional: Denies: chills, fever, malaise EENTM: Denies: blurred vision, throat pain, mouth pain Respiratory: Denies: cough, short of breath, stridor Cardiology: Denies: chest pain, palpitations, syncope Gastrointestinal/Abdominal: Denies: abdominal pain, constipation, diarrhea Genitourinary: Denies: dysuria, frequency Musculoskeletal: States: joint pain - knee pain on right, chronic . Denies: back pain, muscle pain Skin: Denies: rash Neurological: Denies: headache, numbness, paresthesia Endocrine: Denies: unexplained weight gain, unexplained weight loss Hematologic/Lymphatic: Denies: easy bleeding, easy bruising Past Medical History (General) - Patient Medical History Hx Seizures: No Hx Stroke: No Hx Asthma: No Hx of COPD: No Hx Cardiac Disorders: No Hx Congestive Heart Failure: No Hx Pacemaker: No Hx Hypertension: No Hx Diabetes: No Hx Cancer: No Hx Hepatitis C: No Hx MRSA: No - Vaccination History Hx Tetanus, Diphtheria Vaccination: No Hx Influenza Vaccination: No Hx Pneumococcal Vaccination: No - Social History Hx Tobacco Use: No Hx Chewing Tobacco Use: No Hx Alcohol Use: No Hx Substance Use: No Hx Substance Use Treatment: No Hx Depression: No Hx Physical Abuse: No Hx Emotional Abuse: No Hx Suspected Abuse: No - Female History Patient : No Family Medical History - Family History Mother Family History: No Known Living Status: Physical Exam - Physical Exam General Appearance: Alert, Comfortable, No apparent distress, Well Developed, Well Groomed, Well Hydrated, Well Nourished Eye Exam: bilateral normal Ears, Nose, Throat: hearing grossly normal, normal ENT inspection, normal pharynx Neck: non-tender, full range of motion, supple, normal inspection Respiratory: chest non-tender, lungs clear, normal breath sounds, no respiratory distress, no accessory muscle use Cardiovascular/Chest: normal peripheral pulses, regular rate, rhythm, no gallop, no JVD, no murmur Peripheral Pulses: radial,right: 2+, radial,left: 2+ Gastrointestinal/Abdominal: normal bowel sounds, non tender, soft, no organomegaly, no pulsatile mass Rectal Exam: deferred Back Exam: normal inspection Extremity: normal range of motion, non-tender, no calf tenderness, normal capillary refill Neurologic: health specialist II-XII nml as tested, no motor/sensory deficits, alert, normal mood/affect, oriented x 3 Skin Exam: normal color, warm/dry Progress - Progress Progress: 03/11/20 16:50 The data reviewed when caring for this patient included: nurse notes, prior records, etc. The history and assessments from nurses notes were reviewed and considered, and the patient's home medication list was also reviewed and considered. My assessment and the results of testing completed here in the ED were discussed with the patient. All questions were answered, and they express understanding of my assessment and the plan. They have been instructed to return if their symptoms worsen, and have been asked to follow up with their primary care physician to recheck today's presenting complaint. return precautions given. Bee Peralta DO #[id number] - Results/Orders Results/Orders: COVID negative. Departure - Departure Clinical Impression: Nausea & vomiting Qualifiers: Vomiting type: unspecified Vomiting Intractability: non-intractable Qualified Code(s): R11.2 - Nausea with vomiting, unspecified Time of Disposition: 17:15 Disposition: Discharge to Home or Self Care Instructions: Nausea and Vomiting, Adult (DC) Diet: bland diet, resume usual diet Activity: increase activity as tolerated Home Medications: Ambulatory Orders Aspirin [Baby Aspirin] 81 mg PO DAILY #30 chwtab 09/29/19 diltiaZEM HCL CD [Cardizem Cd] 120 mg PO DAILY #30 cap 09/29/19
[2020-03-11 16:56] VITALS: O2SAT 99
[2020-03-11 18:11] VITALS: BP 134/68; TEMP 97.6
== END 2020-03-11 17:49 | disposition home or self-care (01) ==
LOC: ER 16:28
DX: R11.2 Nausea with vomiting, unspecified (principal); Z20.828 Contact with and (suspected) exposure to other viral communicable diseases; Z79.82 Long term (current) use of aspirin; Z79.899 Other long term (current) drug therapy